=== PATIENT | female | born 1960 | race Caucasian/White ===

== ENCOUNTER → 2024-08-05 11:29 | Outpatient (CLI) | payer OTHER, MEDICAID, SELFPAY ==
--- NOTE | 2024-08-05 | DI.RAD.S_ITS ---
PROCEDURE: XR FOOT LT MIN 3V INDICATIONS: pain in left foot TECHNIQUE: 3 views of the foot were acquired. COMPARISON: None. FINDINGS: Bones: No fractures or dislocations. Hallux valgus deformity noted with bunion. Soft tissues: No radiographically evident soft tissue swelling. IMPRESSION: No acute bony abnormality. Dictated by: Brian Yoon M.D. on 08/05/2024 at 14:16 Approved by: Brian Yoon M.D. on 08/05/2024 at 14:22
== END ==
LOC: RAD 11:32
PROVIDERS: PCP Family Medicine; Referring Provider Podiatrist Foot & Ankle Surgery; Visit Provider Podiatrist Foot & Ankle Surgery
DX: M20.12 Hallux valgus (acquired), left foot (principal); M21.612 Bunion of left foot; M79.672 Pain in left foot
CPT/HCPCS: 73630

== ENCOUNTER → 2024-08-10 07:18 | Outpatient (CLI) | payer OTHER, MEDICAID, SELFPAY ==
--- NOTE | 2024-08-10 | DI.MRI.S_ITS ---
PROCEDURE: MR FOOT LT WO/W CON INDICATIONS: Other cyst of bone, left ankle and foot TECHNIQUE: Multiphasic, multisequence MRI of the forefoot was performed, before and after intravenous contrast administration. COMPARISON: None. FINDINGS: Image quality: Excellent. Bones and joints: Mild hallux valgus. Moderate subchondral marrow edema in the plantar aspect of 1st metatarsal head, degenerative. No suspicious lesion in the 5th metatarsal head. Soft tissues: There is trace amount of fluid with soft tissue edema plantar to the 5th metatarsal head, representing adventitial bursitis. Previously noted calcification plantar to the 5th metatarsal head is not definitely visualized. The visualized plantar fascia is unremarkable. Muscles are normal in signal. The flexor, and the extensor tendons unremarkable. Mild 1st intermetatarsal bursitis. The Lisfranc ligament is intact. IMPRESSION: 1. Mild adventitial bursitis plantar to the 5th metatarsal head. 2. Mild hallux valgus with mild degenerative change of the 1st metatarsophalangeal joint. Dictated by: Gertrude Batista M.D. on 08/10/2024 at 9:57 Approved by: Gertrude Batista M.D. on 08/10/2024 at 10:06
== END ==
PROVIDERS: PCP Family Medicine; Referring Provider Podiatrist Foot & Ankle Surgery; Visit Provider Podiatrist Foot & Ankle Surgery
DX: M85.672 Other cyst of bone, left ankle and foot (principal); M20.12 Hallux valgus (acquired), left foot; M77.52 Other enthesopathy of left foot and ankle
CPT/HCPCS: 73720; A9579